=== PATIENT | female | born 2000 | race Caucasian/White ===

== ENCOUNTER 2023-04-04 22:35 | Inpatient (IN) | payer BC, MEDICAID ==
[2023-04-04] MEDS ORDERED: Acetaminophen 325 MG Tab PO ONE (23:02)
[2023-04-04] MEDS ORDERED: Citric Acid/Sodium Citrate Solution 30 ML Cup PO ONE (23:10)
[2023-04-04] MEDS ORDERED: Clindamycin Phosphate in D5W 900 MG in Premix Bag 1 BAG IV ONE ×2 (23:10)
[2023-04-04] MEDS ORDERED: Sodium Chloride 0.9% 10 ML Syringe FLUSH PRN (23:10)
[2023-04-04] MEDS ORDERED: SODIUM CHLORIDE 0.9% IV ONE (23:10)
[2023-04-04] MEDS ORDERED: Metoclopramide 10 MG/2 ML SDV IVPUSH ONE (23:10)
[2023-04-04] MEDS ORDERED: GENTAMICIN IV ONE (23:10)
[2023-04-04] MEDS ORDERED: Lactated Ringers 1,000 ML IV SCH (23:15)
[2023-04-04] MEDS ORDERED: Ondansetron 4 MG/2 ML SDV ONE (23:19)
[2023-04-04] MEDS ORDERED: Lactated Ringers 2,000 ML ONE (23:19)
[2023-04-04] MEDS ORDERED: Oxytocin 10 Units/1 ML SDV ONE (23:19)
[2023-04-04] MEDS ORDERED: Ketorolac 30 MG/ML SDV ONE (23:19)
[2023-04-04] MEDS ORDERED: Morphine PF 10 MG/10 ML SDV ONE (23:21)
[2023-04-04] MEDS ORDERED: ceFAZolin 2 GM Vial ONE (23:21)
[2023-04-04 23:30] LABS: HEMATOCRIT 34.3 % (37.0-47.0); HEMOGLOBIN 10.8 gm/dl (12.0-16.0); MEAN CORPUSCULAR HGB CONC 31.5 g/dl (32.0-36.0); MEAN CORPUSCULAR VOLUME 88.9 fl (83.0-99.0); MEAN PLATELET VOLUME 8.7 fl (9.4-12.3); NRBC ABSOLUTE 0.03 (0.00-0.02); NRBC PERCENT 0.4 % (0.0-0.2); PLATELET COUNT,PLT 123 K/mm3 (150-400); RED BLOOD CELL COUNT 3.86 M/mm3 (4.10-5.30); WHITE BLOOD CELL COUNT,WBC 8.24 K/mm3 (3.9-11.3)
[2023-04-04 23:54] LABS: A/G RATIO 0.6 (1-2); ALBUMIN 2.1 g/dl (3.4-5.0); ANION GAP 14.9 (5-15); BILIRUBIN TOTAL 0.7 mg/dL (0.2-1.0); CALCIUM 9.3 mg/dL (8.5-10.1); CREATININE 0.5 mg/dL (0.55-1.02); EST CRCL DRUG DOSING (CG) 168.71 mL/min; POTASSIUM,K 3.9 mEq/L (3.5-5.1); PROTEIN TOTAL,TP 5.7 g/dl (6.4-8.2)
[2023-04-04] MEDS ORDERED: Phenylephrine 1% 10 MG/ML SDV ONE (23:57)
[2023-04-05] MEDS ORDERED: Methylergonovine 0.2 MG/1 ML Amp ONE (00:12)
[2023-04-05] MEDS ORDERED: Meperidine 50 MG/ML Vial ONE (00:25)
[2023-04-05] MEDS ORDERED: fentaNYL 100 MCG/2 ML SDV IVPUSH PRN (00:58)
[2023-04-05] MEDS ORDERED: Meperidine 50 MG/ML Vial IVPUSH PRN (00:58)
[2023-04-05] MEDS ORDERED: diphenhydrAMINE 50 MG/ML SDV IVPUSH PRN ×2 (00:58→02:12)
[2023-04-05] MEDS ORDERED: Ondansetron 4 MG/2 ML SDV IVPUSH PRN (00:58)
[2023-04-05] MEDS ORDERED: Misoprostol 200 MCG Tab ONE (01:00)
[2023-04-05] MEDS ORDERED: Dextrose 5%-Lactated Ringers 1,000 ML IV SCH (02:12)
[2023-04-05] MEDS ORDERED: ePHEDrine 50 MG/ML SDV IVPUSH PRN (02:12)
[2023-04-05] MEDS ORDERED: Naloxone 0.4 MG/ML SDV IVPUSH PRN (02:12)
[2023-04-05] MEDS ORDERED: Acetaminophen/oxyCODONE 325-5 MG Tab PO PRN ×2 (02:12)
[2023-04-05] MEDS ORDERED: Measles, Mumps & Rubella Vaccine 0.5 ML SDV SUBCUT ONE (02:12)
[2023-04-05] MEDS ORDERED: Ondansetron 4 MG/2 ML SDV IV PRN (02:12)
[2023-04-05] MEDS ORDERED: Docusate Sodium 100 MG Cap PO PRN (02:12)
[2023-04-05 03:25] LABS: INFLUENZA A NAA NEGATIVE (NEGATIVE); RESPIRATORY SYNCYTIAL VIR NAA NEGATIVE (NEGATIVE)
[2023-04-05 05:01] LABS: CORONAVIRUS COVID-19 NAA POSITIVE (NEGATIVE)
[2023-04-05] MEDS: Ketorolac 30 MG/ML SDV IVPUSH SCH ×3 (06:18→18:32)
[2023-04-05] MEDS ORDERED: Clindamycin Phosphate in D5W 900 MG in Premix Bag 1 BAG IV SCH ×2 (07:00)
[2023-04-05 07:04] LABS: BASOPHILS PERCENT AUTO 0.3 % (0.0-1.0); EOSINOPHILS PERCENT AUTO 0.3 % (0.0-6.0); IMMATURE GRAN ABSOLUTE AUTO 0.03 K/mm3 (0.00-0.05); IMMATURE GRAN PERCENT AUTO 0.5 % (0.0-0.4); LYMPHOCYTES ABSOLUTE AUTO 0.6 K/mm3 (1.0-4.8); LYMPHOCYTES PERCENT AUTO 9.7 % (24.0-44.0); MEAN CORPUSCULAR HEMOGLOBIN 28.1 pg (28.0-32.0); MEAN CORPUSCULAR HGB CONC 31.9 g/dl (32.0-36.0); MEAN CORPUSCULAR VOLUME 88.2 fl (83.0-99.0); MONOCYTES ABSOLUTE AUTO 0.6 K/mm3 (0.0-0.8); MONOCYTES PERCENT AUTO 10.1 % (0.0-8.0); NEUTROPHILS ABSOLUTE AUTO 4.7 K/mm3 (1.8-7.7); NEUTROPHILS PERCENT AUTO 79.1 % (41.0-71.0); NRBC ABSOLUTE 0.04 (0.00-0.02); NRBC PERCENT 0.7 % (0.0-0.2); PLATELET COUNT,PLT 103 K/mm3 (150-400); RED BLOOD CELL COUNT 3.06 M/mm3 (4.10-5.30); WHITE BLOOD CELL COUNT,WBC 5.97 K/mm3 (3.9-11.3)
[2023-04-05 07:13] LABS: HEMOGLOBIN 8.6 gm/dl (12.0-16.0)
[2023-04-05 07:38] LABS: SLIDE REVIEW ABNORMAL SMEAR
[2023-04-05 07:50] LABS: FIBRINOGEN 334 mg/dL (187-446)
[2023-04-05 07:51] LABS: PROTHROMBIN TIME 10.7 SECONDS (9.7-12.0)
[2023-04-05 07:53] LABS: PTT,PARTIAL THROMBOPLSTIN TIME 35.2 SECONDS (21.7-31.4)
[2023-04-05] MEDS ORDERED: REMDESIVIR 200 MG in Sodium Chloride 0.9% 250 ML IV ONE (09:00)
[2023-04-05] MEDS ORDERED: Sodium Chloride 0.9% 10 ML Syringe FLUSH SCH (09:00)
[2023-04-05 09:05] LABS: FIBRIN DEGREDATION PRODUCTS > 20 ug/mL ug/mL (<5)
[2023-04-05] MEDS: Acetaminophen 325 MG Tab PO PRN ×2 (14:07→20:27)
[2023-04-05 16:07] LABS: HEMATOCRIT 26.9 % (37.0-47.0); HEMOGLOBIN 8.6 gm/dl (12.0-16.0); MEAN CORPUSCULAR HEMOGLOBIN 28.3 pg (28.0-32.0); MEAN CORPUSCULAR VOLUME 88.5 fl (83.0-99.0); MEAN PLATELET VOLUME 9.5 fl (9.4-12.3); NRBC ABSOLUTE 0.05 (0.00-0.02); NRBC PERCENT 0.9 % (0.0-0.2); PLATELET COUNT,PLT 113 K/mm3 (150-400); RED BLOOD CELL COUNT 3.04 M/mm3 (4.10-5.30); WHITE BLOOD CELL COUNT,WBC 5.58 K/mm3 (3.9-11.3)
[2023-04-05] MEDS: Benzocaine/Cetylpyridinium/Menthol Lozenge MUCMEM PRN (22:10)
[2023-04-06] MEDS ORDERED: Ibuprofen 600 MG Tab PO PRN
[2023-04-06] MEDS: Acetaminophen 325 MG Tab PO PRN ×2 (04:53→13:18)
[2023-04-06] MEDS ORDERED: REMDESIVIR 100 MG in Sodium Chloride 0.9% 250 ML IV SCH (09:00)
[2023-04-06] MEDS: Benzocaine/Cetylpyridinium/Menthol Lozenge MUCMEM PRN (09:49)
== END 2023-04-06 13:15 | disposition home or self-care (01) | DRG 786 ==
LOC: JD.OBCHECK 22:35 → JD.OB 23:12 → JD.OBCHECK 23:50 → JD.OB 23:51 → OBSVTOIN 04-05 01:23 → JD.OB 04-05 02:12
PROVIDERS: ADMIT Obstetrics & Gynecology; ATTEND Obstetrics & Gynecology
PROC: 10D00Z1 Extraction of Products of Conception, Low, Open Approach (ICD-10-PCS; principal; 2023-04-05)
PROC: XW033E5 Introduction of Remdesivir Anti-infective into Peripheral Vein, Percutaneous Approach, New Technology Group 5 (ICD-10-PCS; 2023-04-05)
DX: O30.033 Twin pregnancy, monochorionic/diamniotic, third trimester (principal); O60.14X0 Preterm labor third trimester with preterm delivery third trimester, not applicable or unspecified; U07.1 COVID-19; O98.52 Other viral diseases complicating childbirth; O72.1 Other immediate postpartum hemorrhage; O99.344 Other mental disorders complicating childbirth; F41.9 Anxiety disorder, unspecified; F32.A Depression, unspecified; Z37.2 Twins, both liveborn; O32.1XX2 Maternal care for breech presentation, fetus 2; Z3A.34 34 weeks gestation of pregnancy; Z88.0 Allergy status to penicillin; Z88.1 Allergy status to other antibiotic agents; Z87.891 Personal history of nicotine dependence; Z28.39 Other underimmunization status
CPT/HCPCS: 01961; 0241U; 36415; 59025; 80053; 85025; 85027; 85362; 85384; 85610; 85730; 86592; 86850; 86900; 86901; 87040; 87486; 87581; 87633; 94762; 99140; A9270-GY; J0248; J0690; J1580; J1885; J2175; J2210; J2274; J2371; J2405; J2590; J2765; J3490; J7050; J7120; J7121